=== PATIENT | female | born 1985 ===

== ENCOUNTER → 2021-08-13 | Emergency (ER) | payer SELFPAY ==
[~2021-08-13] VITALS: Ht 152.4 cm; Wt 63.5 kg
[~2021-08-13] MED LIST: ONDANSETRON ODT4 MG PO
[2021-08-13 19:36] VITALS: BP 121/66
== END | disposition home or self-care (01) ==
LOC: ER 18:10
DX: J06.9 Acute upper respiratory infection, unspecified (principal)
CPT/HCPCS: 99282